=== PATIENT | female | born 1930 | race Caucasian/White ===

== ENCOUNTER 2019-04-20 06:27 | Observation (INO) ==
--- NOTE | 2019-04-20 07:10 | Emergency Department Note ---
Disposition Clinical Impression: Supratherapeutic INR CHF exacerbation Qualifiers: Heart failure type: unspecified Qualified Code(s): I50.9 - Heart failure, unspecified UTI (urinary tract infection) Qualifiers: Urinary tract infection type: acute cystitis Hematuria presence: without hematuria Qualified Code(s): N30.00 - Acute cystitis without hematuria Disposition: Admitted As Inpatient Time of Disposition: 16:52 General Adult HPI - General Chief complaint: ED Chest Pain Stated complaint: Chest Pain/ SOB Time Seen by Provider: 04/20/19 06:56 Source: patient, EMS Limitations: no limitations - History of Present Illness Pain Scale: 8 - Related Data Home Medications Medication Instructions Recorded Confirmed Amiodarone [Cordarone] 200 mg PO DAILY 09/25/18 04/20/19 Carvedilol [Coreg] 25 mg PO BID 09/25/18 04/20/19 Furosemide [Lasix] 40 mg PO Q48H 09/25/18 04/20/19 Lisinopril [Zestril] 10 mg PO DAILY 09/25/18 04/20/19 Multivit-Min/Iron/Folic/Lutein 1 each PO DAILY 09/25/18 04/20/19 [Centrum Silver Women Tablet] Aspirin [Ecotrin] 325 mg PO DAILY 04/20/19 04/20/19 Warfarin [Coumadin] 3 mg PO 1800 04/20/19 04/20/19 Allergies Allergy/AdvReac Type Severity Reaction Status Date / Time No Known Allergies Allergy Verified 04/20/19 07:02 Past Medical History - Past Medical History Medical history: Reports: arthritis, atrial fibrillation, CHF, coronary artery disease, hypertension, myocardial infarction, osteoporosis Surgical history: Reports: appendectomy, herniorrhaphy, hysterectomy, pacemaker/AICD Psychiatric history: Reports: no psych history - Social History Smoking Status: Never smoker Smokeless Tobacco Status: No Alcohol use: Reports: none Drug use: Reports: none Physical Exam - General Limitations: no limitations General appearance: alert Course Vital Signs Temperature 98.8 F 04/20/19 06:51 Pulse Rate 65 04/20/19 06:51 Respiratory Rate 20 04/20/19 06:51 Blood Pressure 134/83 04/20/19 06:51 O2 Sat by Pulse Oximetry 92 04/20/19 06:51 Temperature 99.9 F H 04/20/19 16:06 Pulse Rate 60 04/20/19 16:06 Respiratory Rate 17 04/20/19 16:06 Blood Pressure 136/77 04/20/19 16:06 O2 Sat by Pulse Oximetry 93 04/20/19 16:06 Oxygen Delivery Oxygen Delivery Nasal Cannula Medical Decision Making - Lab Data Result diagrams: 04/20/19 07:00 04/20/19 07:00 Lab Results 04/20/19 04/20/19 04/20/19 Range/Units 07:00 07:00 07:00 WBC 11.7 H (4.3-11.1) K/mcL RBC 3.78 L (3.82-4.97) M/mcL Hgb 11.1 L (11.5-15.4) g/dL Hct 35.8 (35.3-44.9) % MCV 94.7 (83.0-100.0) fL MCH 29.4 (28.0-33.3) pg MCHC 31.0 L (31.6-35.5) g/dL RDW 14.6 H (11.5-14.5) % Plt Count 176 (140-400) K/mcL MPV 11.3 (9.4-12.4) fL Immature Gran % 0.4 (0-4) % Seg Neutrophils % 75.8 % Lymphocytes % 9.3 % Monocytes % 12.3 % Eosinophils % 1.3 % Basophils % 0.9 % Neutrophils # 8.8 (1.6-8.9) K/mcL Lymphocytes # 1.1 (0.6-4.6) K/mcL Monocytes # 1.4 H (0.0-1.3) K/mcL Eosinophils # 0.2 (0.0-0.6) K/mcL Basophils # 0.1 (0.0-0.2) K/mcL PT (9.4-12.1) Seconds INR Sodium 139 (136-145) mEq/L Potassium 3.9 (3.5-5.1) mEq/L Chloride 102 (98-107) mEq/L Carbon Dioxide 26 (23-29) mEq/L BUN 22 (8-23) mg/dL Creatinine 0.92 (0.60-1.20) mg/dL Est GFR ( Amer) > 60 (> 60) Est GFR (Non-Af Amer) 58 L (> 60) BUN/Creatinine Ratio 24 (6-26) Glucose 182 H (70-105) mg/dL Calculated Osmolality 296 (280-300) Calcium 9.2 (8.6-10.3) mg/dL Magnesium 2.0 (1.6-2.6) mg/dL Troponin I < 0.03 (< 0.04) ng/mL B-Natriuretic Peptide 1207 H (Less than 100) pg/mL Urine Color (Yellow) Urine Clarity (Clear) Urine pH (5.0-8.0) pH Units Ur Specific [place] (1.010-1.025) Urine Protein (Neg-Trace) mg/dL Urine Glucose (UA) (Normal) mg/dL Urine Ketones (Negative) mg/dL Urine Blood (Negative) Urine Nitrite (Negative) Urine Bilirubin (Negative) Urine Urobilinogen (Normal) mg/dL Ur Leukocyte Esterase (Negative) Urine Microscopic RBC (0-3) per hpf Urine Microscopic WBC (0-3) per hpf Ur Squamous Epith Cells (None-Few) per lpf Urine Bacteria (None-Few) per hpf Hyaline Casts (None-Few) per lpf Ur Culture Indicated? (NO) 04/20/19 04/20/19 Range/Units 07:00 07:19 WBC (4.3-11.1) K/mcL RBC (3.82-4.97) M/mcL Hgb (11.5-15.4) g/dL Hct (35.3-44.9) % MCV (83.0-100.0) fL MCH (28.0-33.3) pg MCHC (31.6-35.5) g/dL RDW (11.5-14.5) % Plt Count (140-400) K/mcL MPV (9.4-12.4) fL Immature Gran % (0-4) % Seg Neutrophils % % Lymphocytes % % Monocytes % % Eosinophils % % Basophils % % Neutrophils # (1.6-8.9) K/mcL Lymphocytes # (0.6-4.6) K/mcL Monocytes # (0.0-1.3) K/mcL Eosinophils # (0.0-0.6) K/mcL Basophils # (0.0-0.2) K/mcL PT 40.1 H (9.4-12.1) Seconds INR 3.5 Sodium (136-145) mEq/L Potassium (3.5-5.1) mEq/L Chloride (98-107) mEq/L Carbon Dioxide (23-29) mEq/L BUN (8-23) mg/dL Creatinine (0.60-1.20) mg/dL Est GFR ( Amer) (> 60) Est GFR (Non-Af Amer) (> 60) BUN/Creatinine Ratio (6-26) Glucose (70-105) mg/dL Calculated Osmolality (280-300) Calcium (8.6-10.3) mg/dL Magnesium (1.6-2.6) mg/dL Troponin I (< 0.04) ng/mL B-Natriuretic Peptide (Less than 100) pg/mL Urine Color Yellow (Yellow) Urine Clarity Cloudy A (Clear) Urine pH 5.5 (5.0-8.0) pH Units Ur Specific [place] 1.023 (1.010-1.025) Urine Protein 30 H (Neg-Trace) mg/dL Urine Glucose (UA) Normal (Normal) mg/dL Urine Ketones Negative (Negative) mg/dL Urine Blood Negative (Negative) Urine Nitrite Positive A (Negative) Urine Bilirubin Negative (Negative) Urine Urobilinogen Normal (Normal) mg/dL Ur Leukocyte Esterase Small H (Negative) Urine Microscopic RBC 0-3 (0-3) per hpf Urine Microscopic WBC 15-30 H (0-3) per hpf Ur Squamous Epith Cells None Seen (None-Few) per lpf Urine Bacteria Many H (None-Few) per hpf Hyaline Casts Few (None-Few) per lpf Ur Culture Indicated? YES A (NO) Attestation Statement - Attestation Attestation: I reviewed the residents documentation and agree with the residents assessment and plan of care. I have personally had face to face time with the patient. (Brief History, Brief Exam, and MDM) I personally supervised and was present for the wilson/critical portions of the following procedures completed by the resident: (add procedures performed here). [id number] time provided I attest to supervising resident the physician's interpretation of the ECG Patient presents with chest pain and cough. She has no known history of coronary artery disease. She appears in no acute distress on exam. Plan of car e and management discussed by me with the resident physician Dr. Jason
--- NOTE | 2019-04-20 07:15 | Emergency Department Note ---
Disposition Clinical Impression: Supratherapeutic INR CHF exacerbation Qualifiers: Heart failure type: unspecified Qualified Code(s): I50.9 - Heart failure, unspecified UTI (urinary tract infection) Qualifiers: Urinary tract infection type: acute cystitis Hematuria presence: without hematuria Qualified Code(s): N30.00 - Acute cystitis without hematuria Disposition: Admitted As Inpatient Forms: ED Satisfaction Letter Time of Disposition: 08:18 Chest Pain HPI - General Chief Complaint: ED Chest Pain Stated Complaint: Chest Pain/ SOB Time Seen by Provider: 04/20/19 06:56 Source: patient, EMS Mode of arrival: EMS Limitations: no limitations Vital Signs Reviewed: Yes Nursing Notes Reviewed: Yes - History of Present Illness HPI Narrative: 89F with PMHx of CHF with EF of 20-25% from echo in January of this year, [place] and afib on Coumadin presents to the ED via EMS due to chest pain that developed when she was coughing. Patient states that she was awake around 4:00 when she started coughing. After significant bout of coughing, where she felt like she was going to throw up, she began noticing some chest pain radiating across both sides of her chest and down into her arms. She has never had chest pain this significant before. She currently has some chest pressure that has persisted. She has been coughing more than normal the past several days. She denies fevers and chills, abdominal pain, nausea and vomiting. She does not feel more short of breath than her baseline. Severity scale (1-10): 8 - Related Data Home Medications Medication Instructions Recorded Confirmed Amiodarone [Cordarone] 200 mg PO DAILY 09/25/18 04/20/19 Carvedilol [Coreg] 25 mg PO BID 09/25/18 04/20/19 Furosemide [Lasix] 40 mg PO Q48H 09/25/18 04/20/19 Lisinopril [Zestril] 10 mg PO DAILY 09/25/18 04/20/19 Multivit-Min/Iron/Folic/Lutein 1 each PO DAILY 09/25/18 04/20/19 [Centrum Silver Women Tablet] Aspirin [Ecotrin] 325 mg PO DAILY 04/20/19 04/20/19 Warfarin [Coumadin] 3 mg PO 1800 04/20/19 04/20/19 Allergies Allergy/AdvReac Type Severity Reaction Status Date / Time No Known Allergies Allergy Verified 04/20/19 07:02 All systems ED: reviewed and negative except as stated. Review of Systems: As Per HPI Constitutional: Reports: weakness. Denies: fever, chills Cardiovascular: Reports: chest pain. Denies: palpitations, dyspnea on exertion Respiratory: Reports: cough. Denies: dyspnea, wheezes, sputum production Gastrointestinal: Denies: abdominal pain, nausea, vomiting Genitourinary: Denies: dysuria Musculoskeletal: Denies: back pain Neurological: Denies: headache Chest Pain PMH - Past Medical History Medical history: Reports: arthritis, atrial fibrillation, CHF, coronary artery disease, hypertension, myocardial infarction, osteoporosis Surgical history: Reports: appendectomy, herniorrhaphy, hysterectomy, pacemaker/AICD Psychiatric history: Reports: no psych history - Social History Smoking Status: Never smoker Alcohol use: Reports: none Drug use: Reports: none Physical Exam - General Limitations: no limitations General appearance: alert, in no apparent distress - Head Head exam: atraumatic, normocephalic - Eye Eye exam: Present: normal appearance, EOMI - Chest Chest inspection: Present: normal inspection. Absent: tenderness, rash - Respiratory Respiratory exam: Present: normal lung sounds bilaterally. Absent: respiratory distress, wheezes - Cardiovascular Cardiovascular exam: Present: regular rate, normal rhythm - Abdominal Exam Abdominal exam: Present: soft, Non-Tender. Absent: distention, guarding, rebound, rigidity - Extremities Exam Extremities exam: Present: pedal edema (1+pedal edema to the knees bilaterally). Absent: tenderness - Neurological Exam Neurological exam: Present: alert, oriented X3 - Psychiatric Psychiatric exam: Present: normal affect, normal mood - Skin Skin exam: Present: warm, dry, intact Course Vital Signs Temperature 98.8 F 04/20/19 06:51 Pulse Rate 65 04/20/19 06:51 Respiratory Rate 20 04/20/19 06:51 Blood Pressure 134/83 04/20/19 06:51 O2 Sat by Pulse Oximetry 92 04/20/19 06:51 Temperature 98.8 F 04/20/19 06:58 Pulse Rate 67 04/20/19 07:55 Respiratory Rate 20 04/20/19 07:55 Blood Pressure 134/74 04/20/19 07:55 O2 Sat by Pulse Oximetry 99 04/20/19 07:55 Oxygen Delivery Oxygen Delivery Nasal Cannula Chest Pain - [facility] Narrative Medical decision making narrative: Patient presents with chest pain and cough that started today and she still has some chest pressure that she feels. We will pursue cardiac workup with EKG, labs, chest x-ray and also obtain a urinalysis due to her feeling weaker than normal. Pt received 324 of Aspirin via EMS prior to arrival. We will also administer nitro for her chest pressure. 805 - patient's chest x-ray shows left-sided pleural effusion versus atelectasis. Lab work demonstrates a urinary tract infection with a slightly elevated white blood count and supratherapeutic INR. Troponin is within normal limits. Rocephin has been ordered for the urinary tract infection. BNP is 1207. Pt will be admitted to the hospital for CHF exacerbation and UTI. Hospitalist has been paged. 817 - pt has been accepted by Dr. Vincent - Medical Records Medical records reviewed: Yes I reviewed the patient's medical records. - Lab Data Lab results reviewed: Yes I reviewed the patient's lab results. Result diagrams: 04/20/19 07:00 04/20/19 07:00 Lab Results 04/20/19 04/20/19 04/20/19 Range/Units 07:00 07:00 07:00 WBC 11.7 H (4.3-11.1) K/mcL RBC 3.78 L (3.82-4.97) M/mcL Hgb 11.1 L (11.5-15.4) g/dL Hct 35.8 (35.3-44.9) % MCV 94.7 (83.0-100.0) fL MCH 29.4 (28.0-33.3) pg MCHC 31.0 L (31.6-35.5) g/dL RDW 14.6 H (11.5-14.5) % Plt Count 176 (140-400) K/mcL MPV 11.3 (9.4-12.4) fL Immature Gran % 0.4 (0-4) % Seg Neutrophils % 75.8 % Lymphocytes % 9.3 % Monocytes % 12.3 % Eosinophils % 1.3 % Basophils % 0.9 % Neutrophils # 8.8 (1.6-8.9) K/mcL Lymphocytes # 1.1 (0.6-4.6) K/mcL Monocytes # 1.4 H (0.0-1.3) K/mcL Eosinophils # 0.2 (0.0-0.6) K/mcL Basophils # 0.1 (0.0-0.2) K/mcL PT (9.4-12.1) Seconds INR Sodium 139 (136-145) mEq/L Potassium 3.9 (3.5-5.1) mEq/L Chloride 102 (98-107) mEq/L Carbon Dioxide 26 (23-29) mEq/L BUN 22 (8-23) mg/dL Creatinine 0.92 (0.60-1.20) mg/dL Est GFR ( Amer) > 60 (> 60) Est GFR (Non-Af Amer) 58 L (> 60) BUN/Creatinine Ratio 24 (6-26) Glucose 182 H (70-105) mg/dL Calculated Osmolality 296 (280-300) Calcium 9.2 (8.6-10.3) mg/dL Magnesium 2.0 (1.6-2.6) mg/dL Troponin I < 0.03 (< 0.04) ng/mL B-Natriuretic Peptide 1207 H (Less than 100) pg/mL Urine Color (Yellow) Urine Clarity (Clear) Urine pH (5.0-8.0) pH Units Ur Specific [place] (1.010-1.025) Urine Protein (Neg-Trace) mg/dL Urine Glucose (UA) (Normal) mg/dL Urine Ketones (Negative) mg/dL Urine Blood (Negative) Urine Nitrite (Negative) Urine Bilirubin (Negative) Urine Urobilinogen (Normal) mg/dL Ur Leukocyte Esterase (Negative) Urine Microscopic RBC (0-3) per hpf Urine Microscopic WBC (0-3) per hpf Ur Squamous Epith Cells (None-Few) per lpf Urine Bacteria (None-Few) per hpf Hyaline Casts (None-Few) per lpf Ur Culture Indicated? (NO) 04/20/19 04/20/19 Range/Units 07:00 07:19 WBC (4.3-11.1) K/mcL RBC (3.82-4.97) M/mcL Hgb (11.5-15.4) g/dL Hct (35.3-44.9) % MCV (83.0-100.0) fL MCH (28.0-33.3) pg MCHC (31.6-35.5) g/dL RDW (11.5-14.5) % Plt Count (140-400) K/mcL MPV (9.4-12.4) fL Immature Gran % (0-4) % Seg Neutrophils % % Lymphocytes % % Monocytes % % Eosinophils % % Basophils % % Neutrophils # (1.6-8.9) K/mcL Lymphocytes # (0.6-4.6) K/mcL Monocytes # (0.0-1.3) K/mcL Eosinophils # (0.0-0.6) K/mcL Basophils # (0.0-0.2) K/mcL PT 40.1 H (9.4-12.1) Seconds INR 3.5 Sodium (136-145) mEq/L Potassium (3.5-5.1) mEq/L Chloride (98-107) mEq/L Carbon Dioxide (23-29) mEq/L BUN (8-23) mg/dL Creatinine (0.60-1.20) mg/dL Est GFR ( Amer) (> 60) Est GFR (Non-Af Amer) (> 60) BUN/Creatinine Ratio (6-26) Glucose (70-105) mg/dL Calculated Osmolality (280-300) Calcium (8.6-10.3) mg/dL Magnesium (1.6-2.6) mg/dL Troponin I (< 0.04) ng/mL B-Natriuretic Peptide (Less than 100) pg/mL Urine Color Yellow (Yellow) Urine Clarity Cloudy A (Clear) Urine pH 5.5 (5.0-8.0) pH Units Ur Specific [place] 1.023 (1.010-1.025) Urine Protein 30 H (Neg-Trace) mg/dL Urine Glucose (UA) Normal (Normal) mg/dL Urine Ketones Negative (Negative) mg/dL Urine Blood Negative (Negative) Urine Nitrite Positive A (Negative) Urine Bilirubin Negative (Negative) Urine Urobilinogen Normal (Normal) mg/dL Ur Leukocyte Esterase Small H (Negative) Urine Microscopic RBC 0-3 (0-3) per hpf Urine Microscopic WBC 15-30 H (0-3) per hpf Ur Squamous Epith Cells None Seen (None-Few) per lpf Urine Bacteria Many H (None-Few) per hpf Hyaline Casts Few (None-Few) per lpf Ur Culture Indicated? YES A (NO) - Radiology Data Radiology results reviewed: Yes I reviewed the patient's radiology results. - EKG Data EKG attestation: Yes I reviewed and interpreted this EKG. EKG results narrative: EKG obtained at 6 4308/62,019 Heart rate 61 bpm, [place] interval 30, QRS duration 153, QT 488, QTC 492 Atrial ventricular dual paced rhythm. No signs of ST segment elevations or depressions meeting sgarbossa criteria. This is changed when compared to previous EKG from April 2018 which shows sinus rhythm at 65 bpm. Heart Score - Score History: Moderately Suspicious EKG: Non Specific repolarisation Disturbance Age: Greater than 65 Risk Factors: Equal/Greater than 3 risk factor or history of atherosclerotic disease Troponin: Less than normal limit HEART Score Total: 6
[2019-04-20] MEDS ORDERED: Aspirin 81 MG TAB.CHEW PO ONE (07:18)
[2019-04-20] MEDS ORDERED: Nitroglycerin 0.4 MG TAB.SUBL SL PRN (07:18)
[2019-04-20 07:24] LABS: Basophils # 0.1 K/mcL (0.0-0.2); Basophils % 0.9 %; Eosinophils # 0.2 K/mcL (0.0-0.6); Eosinophils % 1.3 %; Hematocrit 35.8 % (35.3-44.9); Hemoglobin 11.1 g/dL (11.5-15.4); Immature Granulocytes % 0.4 % (0-4); Lymphocytes # 1.1 K/mcL (0.6-4.6); Lymphocytes % 9.3 %; Mean Corpuscular Hemoglobin 29.4 pg (28.0-33.3); Mean Corpuscular Volume 94.7 fL (83.0-100.0); Mean Platelet Volume 11.3 fL (9.4-12.4); Monocytes # 1.4 K/mcL (0.0-1.3); Monocytes % 12.3 %; Neutrophils # 8.8 K/mcL (1.6-8.9); Platelet Count 176 K/mcL (140-400); Red Blood Count 3.78 M/mcL (3.82-4.97); Red Cell Distribution Width 14.6 % (11.5-14.5); Segmented Neutrophils % 75.8 %; White Blood Count 11.7 K/mcL (4.3-11.1)
[2019-04-20 07:43] LABS: BUN/Creatinine Ratio 24 (6-26); Blood Urea Nitrogen 22 mg/dL (8-23); Calcium 9.2 mg/dL (8.6-10.3); Carbon Dioxide 26 mEq/L (23-29); Chloride 102 mEq/L (98-107); Glucose 182 mg/dL (70-105); Osmolality,Calculated 296 (280-300); Potassium 3.9 mEq/L (3.5-5.1); Sodium 139 mEq/L (136-145); Troponin I < 0.03 ng/mL (< 0.04); eGFR For African Americans > 60 (> 60); eGFR For Non-African Americans 58 (> 60)
[2019-04-20 07:44] LABS: Bilirubin,Urine Negative (Negative); Blood,Urine Negative (Negative); Clarity,Urine Cloudy (Clear); Color,Urine Yellow (Yellow); Glucose,Urine (UA) Normal (Normal); Ketones,Urine Negative (Negative); Leukocyte Esterase,Urine Small (Negative); Nitrite,Urine Positive (Negative); PH,Urine 5.5 pH Units (5.0-8.0); Protein,Urine 30 mg/dL (Neg-Trace); Specific Gravity,Urine 1.023 (1.010-1.025); Urobilinogen,Urine Normal (Normal)
[2019-04-20 07:47] LABS: Bacteria,Urine Many per hpf (None-Few); Hyaline Casts,Urine Few per lpf (None-Few); RBC,Urine 0-3 per hpf (0-3); Squamous Epithelial Cell,Urine None Seen per lpf (None-Few); WBC,Urine 15-30 per hpf (0-3)
[2019-04-20 07:48] LABS: INR 3.5; Prothrombin Time 40.1 Seconds (9.4-12.1)
[2019-04-20] MEDS ORDERED: cefTRIAXone 1,000 MG in Water for inj. (sterile) 10 ML IVP ONE (07:52)
[2019-04-20] MEDS ORDERED: Furosemide 40 MG/4 ML VIAL IVP ONE ×2 (08:03→21:39)
--- NOTE | 2019-04-20 09:15 | Electrocardiograph Report ---
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
--- NOTE | 2019-04-20 11:03 | Internal Med History&Physical ---
Date of Encounter: 04/20/19 Time of Encounter: 11:03 Internal Medicine - H&P: HPI Chief complaint: Shortness of breath History of present illness: Ms. Canchola is a 89 year old female with past medical history of CHF with EF of 20-25% , [place] and afib on Coumadin presents to the the ER for further evaluation of persistent cough started early this morning associated with nausea and chest pain that is radiating to both of her arms. The patient describes the cough as dry and persistent for the last several days. She also noticed progressive worsening of lower extremity edema, and worsening of shortness of breath specifically with exertion, she was evaluated by the ER staff and clinical picture was suggestive of pulmonary edema she was treated with Lasix and admitted for further evaluation and management of congestive heart failure exacerbation. Past Med Surg Social Fam HX - Past Medical History Medical history: arthritis, atrial fibrillation, CHF, coronary artery disease, hypertension, myocardial infarction, osteoporosis Psychiatric history: no psych history - Past Surgical History Surgical History: appendectomy, herniorrhaphy, hysterectomy, pacemaker/AICD Additional surgical history: [facility] 05/2014, , PROLAPSED BLADDER, - Social History Smoking Status: Never smoker Smokeless Tobacco Status: No Alcohol use: none Drug use: none - Family History Father Living Status: Hx Family Cardiac Disorders: Yes Internal Medicine - H&P: Meds Amiodarone [Cordarone] 200 mg PO DAILY 09/25/18 [History] Carvedilol [Coreg] 25 mg PO BID 09/25/18 [History] Furosemide [Lasix] 40 mg PO Q48H 09/25/18 [History] Lisinopril [Zestril] 10 mg PO DAILY 09/25/18 [History] Multivit-Min/Iron/Folic/Lutein [Centrum Silver Women Tablet] 1 each PO DAILY 09/25/18 [History] Aspirin [Ecotrin] 325 mg PO DAILY 04/20/19 [History] Potassium Chloride [Klor-Con 10] 10 meq PO Q48H 04/20/19 [History] Warfarin [Coumadin] 3 mg PO 1800 04/20/19 [History] Allergy/AdvReac Type Severity Reaction Status Date / Time No Known Allergies Allergy Verified 04/20/19 07:02 All Systems PM: A 10-system review of systems was performed and is negative for pertinent findings except as documented above in the HPI. - Constitutional Vitals: Temp Pulse Resp BP Pulse Ox 98.8 F 60 16 129/81 96 04/20/19 06:58 04/20/19 08:26 04/20/19 09:23 04/20/19 09:23 04/20/19 08:26 General appearance: Present: A&O X 3 Exam: . - Head Head exam: Present: atraumatic, normocephalic - Neck Neck exam general surgery: Present: supple, trachea midline. Absent: lymphadenopathy - Respiratory Respiratory exam: Present: rales, rhonchi. Absent: accessory muscle use, wheezes - Cardiovascular Cardiovascular exam: Present: RRR, +S1, +S2. Absent: diastolic murmur, rubs, systolic murmur - Extremities Exam Extremities exam: Present: pedal edema Internal Med - H&P Results - Labs CBC & Chem 7: 04/20/19 23:59 04/20/19 23:59 Labs: Short CBC 04/20/19 Range/Units 07:00 WBC 11.7 H (4.3-11.1) K/mcL Hgb 11.1 L (11.5-15.4) g/dL Hct 35.8 (35.3-44.9) % Plt Count 176 (140-400) K/mcL Neutrophils # 8.8 (1.6-8.9) K/mcL BMP 04/20/19 07:00 Sodium 139 Potassium 3.9 Chloride 102 Carbon Dioxide 26 BUN 22 Creatinine 0.92 Glucose 182 H Calcium 9.2 Cardiac Enzymes 04/20/19 Range/Units 07:00 Troponin I < 0.03 (< 0.04) ng/mL Urine 04/20/19 Range/Units 07:19 Urine Color Yellow (Yellow) Urine Clarity Cloudy A (Clear) Urine pH 5.5 (5.0-8.0) pH Units Ur Specific [place] 1.023 (1.010-1.025) Urine Protein 30 H (Neg-Trace) mg/dL Urine Glucose (UA) Normal (Normal) mg/dL - Impressions ITS Impressions Chest X-Ray 04/20/19 07:01 IMPRESSION: Partial obscuration of the left hemidiaphragm either on the basis of atelectasis, pleural effusion or an infectious/inflammatory process. This could be further evaluated via dedicated PA and lateral views of the chest when the patient is better able to tolerate imaging. D/ / Jered Casanova / Jered Casanova Interpreting Provider: Jered Casanova - Assessment and Plan (1) CHF exacerbation Status: Acute Assessment and plan: CHF exacerbation R/O ischemia Noncompliance URTI PLAN: - CPP x 1 more, 8 hr after the 1st one - EKG in AM - ASA - O2 to keep SpO2 > 92% - Lasix 40 mg IV BID - Aerosols UD q 4 hr - UA - 2D Echo - CBCD, BMP in AM Qualifiers: Heart failure type: unspecified Qualified Code(s): I50.9 - Heart failure, unspecified (2) Non-ischemic cardiomyopathy Status: Chronic Assessment and plan: The patient last reported ejection fraction was about 25%, we will repeat TD echo and continue home meds (3) S/P ICD (internal cardiac defibrillator) procedure Status: Acute (4) UTI (urinary tract infection) Status: Acute Assessment and plan: Urine analysis is suggestive of urinary tract infection, the patient was started on empiric antibiotic with Rocephin, urine culture was obtained , we will follow urine culture and adjust antibiotic regimen accordingly Qualifiers: Urinary tract infection type: acute cystitis Hematuria presence: without hematuria Qualified Code(s): N30.00 - Acute cystitis without hematuria - Time Spent With Patient Total time spent is greater than 50% in coordination of care (as documented) at patient's floor/unit and/or counseling patient:
[2019-04-20] MEDS ORDERED: Acetaminophen 325 MG TABLET PO PRN (11:06)
[2019-04-20] MEDS ORDERED: Ondansetron 4 MG/2 ML VIAL IVP PRN (11:06)
[2019-04-20] MEDS ORDERED: Naloxone 0.4 MG/ML INJ IVP PRN (11:06)
[2019-04-20] MEDS ORDERED: *HR* HYDROcodone/Acet 5/325 mg TABLET PO PRN (11:06)
[2019-04-20] MEDS ORDERED: Warfarin perPT PO PRN (18:00)
[2019-04-20 20:38] VITALS: BP 135/80
[2019-04-20] MEDS ORDERED: 0.9 % Sodium Chloride 1,000 ML ONE (23:56)
[2019-04-21 00:08] LABS: Nucleated Red Blood Cells 0.7 /100 WBC (0)
[2019-04-21 00:10] LABS: Basophils % 0.3 %; Hematocrit 29.8 % (35.3-44.9); Immature Platelets 4.7 % (1.1-6.1); Lymphocytes # 3.9 K/mcL (0.6-4.6); Lymphocytes % 36.4 %; Mean Corpuscular HGB Conc 30.5 g/dL (31.6-35.5); Mean Corpuscular Hemoglobin 29.4 pg (28.0-33.3); Mean Corpuscular Volume 96.4 fL (83.0-100.0); Mean Platelet Volume 12.2 fL (9.4-12.4); Monocytes # 1.1 K/mcL (0.0-1.3); Monocytes % 10.6 %; Neutrophils # 5.5 K/mcL (1.6-8.9); Red Blood Count 3.09 M/mcL (3.82-4.97); Red Cell Distribution Width 14.7 % (11.5-14.5); Segmented Neutrophils % 51.7 %; White Blood Count 10.6 K/mcL (4.3-11.1)
[2019-04-21 00:20] LABS: Hemoglobin 9.1 g/dL (11.5-15.4); Platelet Count 44 K/mcL (140-400); Platelet Estimate Marked Decrease (Normal)
[2019-04-21 00:33] LABS: Troponin I 0.04 ng/mL (< 0.04)
--- NOTE | 2019-04-21 00:52 | Death Note ---
Discharge Sum: Summary - Date and Time Date of admission: 04/20/19 08:42 Date of : 04/21/19 Time of : 00:16 - Summary Details: At 2340 a code was initiated and alerted overhead. On arrival to the patient CPR was underway and the patient was receiving chest compressions. The patient was in PEA. The patient had an ICD which shocked her 9 times. We gave her 3 shocks. The patient underwent 13 rounds of CPR in addition to receiving epinephrine, sodium bicarb, calcium gluconate, amiodarone. Please see code sheet for full details. The family was contacted and requested that CPR and chest compressions stop. The time of was 0016. The patient had no pulse, no respirations, no heart sounds, peoples were fixed and dilated. Again the patient's family was notified of her . - Additional Data Confirmation of as documented by pronouncing clinician: no pulse, no respirations, no heart sounds, pupils fixed and dilated Family: contacted Attending physician: Jessica Vincent Was code activated?: Yes Discharge Sum: Diag - PCOD Probable Cause of : Cardiac arrest Discharge Sum: Prov - Provider Primary care physician: PCP NONE Admitting clinician: Jessica Vincent Attending physician on admission: Jessica Vincent Consults: 04/20/19 11:04 Consult to Cardiac Rehabilitation-Phase1 [CONS] Routine Comment: Reason for Consult: heart failure Call Completed: Yes Consult to Nurse Navigator [CONS] Routine Comment: Pronouncing clinician: Nimesh Monzon
[2019-04-21 00:55] LABS: BUN/Creatinine Ratio 19 (6-26); Blood Urea Nitrogen 18 mg/dL (8-23); Calcium 8.4 mg/dL (8.6-10.3); Carbon Dioxide 20 mEq/L (23-29); Chloride 104 mEq/L (98-107); Glucose 181 mg/dL (70-105); Osmolality,Calculated 290 (280-300); Phosphorous 3.6 mg/dL (2.7-4.5); Potassium 3.5 mEq/L (3.5-5.1); Sodium 137 mEq/L (136-145); eGFR For African Americans > 60 (> 60); eGFR For Non-African Americans 55 (> 60)
[2019-04-21] MEDS ORDERED: *HR* EPINEPHrine 1 MG/10 ML SYRINGE IVP ONE ×2 (02:50)
[2019-04-21] MEDS ORDERED: D5% in Water 250 ML IV BAG IV ONE (02:50)
[2019-04-21] MEDS ORDERED: *HR* Amiodarone 150 MG/3 ML VIAL IVPB ONE (02:50)
[2019-04-21] MEDS ORDERED: EPINEPHrine 1 MG/ML VIAL IV ONE (02:50)
[2019-04-21] MEDS ORDERED: *HR* Norepinephrine 4 MG/4 ML VIAL IVC ONE (02:50)
[2019-04-21] MEDS ORDERED: Multivit/Ca/Min/Fe/FA 1 TAB TABLET PO SCH (09:00)
[2019-04-21] MEDS ORDERED: *HR* Amiodarone 200 MG TABLET PO SCH (09:00)
[2019-04-21] MEDS ORDERED: Aspirin Enteric Coated 325 MG Tablet PO SCH (09:00)
[2019-04-21] MEDS ORDERED: cefTRIAXone 1,000 MG in Water for inj. (sterile) 10 ML IVP SCH (09:00)
== END 2019-04-21 02:51 | disposition expired ==
LOC: 2ANU 06:27 → EMEROOARM 06:27 → 2ANU 10:05
PROVIDERS: ADMIT Internal Medicine Nephrology; ATTEND Internal Medicine Nephrology